=== PATIENT | female | born 1990 | race African-American/Black ===

== ENCOUNTER 2018-05-20 23:29 | Inpatient (IN) ==
[2018-05-20] MEDS ORDERED: LACTATED RINGERS 1,000 ML IV SCH (23:45)
[2018-05-20] MEDS ORDERED: BUTORPHANOL 2 MG/ML VIAL IV PRN (23:49)
[2018-05-20] MEDS ORDERED: ONDANSETRON 4 MG/2 ML VIAL IV PRN (23:49)
[2018-05-21 00:16] LABS: Basophils % 0.3 % (0.0-0.8); Eosinophils # 0.1 10*3/uL (0.0-0.87); Eosinophils % 1.1 % (0.00-10.9); Hematocrit 22.4 VOL% (35.7-47.0); Immature Granulocytes % 0.8 %; Immature Granulocytes Absolute 0.06 #; Lymphocytes # 1.5 10*3/uL (1.4-4.0); Lymphocytes % 20.3 % (21.3-54.2); Mean Corpuscular HGB Conc 27.7 GM/DL (32-36); Mean Corpuscular Hemoglobin 18 PG (27-34); Monocytes # 0.6 10*3/uL (0.11-0.8); Monocytes % 8.3 % (1.7-12.7); NRBC # 0.09 10*3/uL; Neutrophils # 5.2 10*3/uL (1.4-7.4); Neutrophils % 69.2 % (38.7-73.9); Platelet Count 337 T/CUMM (130-400); Red Cell Distribution Width 21.6 % (9.3-17.3); White Blood Count 7.5 T/CUMM (4-12)
[2018-05-21 00:22] LABS: Hemoglobin 6.2 GM/DL (12.0-16.0)
[2018-05-21 00:34] LABS: Bilirubin,Total 0.6 MG/DL (0.2-1.0); Calcium 8.3 MG/DL (8.5-10.1); Osmolality,Calculated 271.7 MOS/KG (273-304); Potassium 3.5 MMOL/L (3.5-5.1); Total Protein 7.5 G/DL (6.4-8.3)
[2018-05-21] MEDS ORDERED: ACETAMINOPHEN 325 MG TABLET PO PRN (01:08)
[2018-05-21] MEDS: MEPERIDINE 50 MG/1 ML VIAL IV PRN ×2 (05:09→07:08)
[2018-05-21] MEDS ORDERED: OXYTOCIN/LR 20 UNIT/1,000 ML BAG IV ONE ×3 (07:11→10:02)
[2018-05-21] MEDS: IBUPROFEN 800 MG TABLET PO PRN ×2 (10:23→19:50)
[2018-05-21] MEDS: FERROUS SULFATE 325 MG TABLET PO SCH (21:39)
[2018-05-22] MEDS ORDERED: oxyCODONE/ACETAMINOPHEN 5-325 MG TABLET PO PRN (00:56)
[2018-05-22] MEDS: oxyCODONE/ACETAMINOPHEN 5-325 MG TABLET PO PRN ×3 (01:10→22:04)
[2018-05-22 06:37] LABS: Basophils % 0.2 % (0.0-0.8); Eosinophils # 0.1 10*3/uL (0.0-0.87); Eosinophils % 1.9 % (0.00-10.9); Immature Granulocytes % 1.6 %; Lymphocytes # 1.7 10*3/uL (1.4-4.0); Lymphocytes % 26.5 % (21.3-54.2); Mean Corpuscular HGB Conc 26.4 GM/DL (32-36); Mean Corpuscular Hemoglobin 17 PG (27-34); Mean Corpuscular Volume 65.4 FL (87-102); Mean Platelet Volume 9.7 FL (9.6-12.0); Monocytes # 0.5 10*3/uL (0.11-0.8); NRBC # 0.09 10*3/uL; Neutrophils # 3.8 10*3/uL (1.4-7.4); Neutrophils % 61.8 % (38.7-73.9); Red Cell Distribution Width 21.2 % (9.3-17.3); White Blood Count 6.2 T/CUMM (4-12)
[2018-05-22 06:47] LABS: Hematocrit 17.4 VOL% (35.7-47.0); Hemoglobin 4.6 GM/DL (12.0-16.0); Platelet Count 223 T/CUMM (130-400); Red Blood Count 2.66 MC/CUMM (3.8-5.5)
[2018-05-22] MEDS ORDERED: SODIUM CHLORIDE 0.9% 1,000 ML IV PRN (06:54)
[2018-05-22 06:55] LABS: Hypochromasia 1+; Microcytosis 1+; Platelet Estimate Normal; Polychromasia Few
[2018-05-22] MEDS: IBUPROFEN 800 MG TABLET PO PRN ×2 (07:50→20:41)
[2018-05-22] MEDS ORDERED: MAGNESIUM HYDROXIDE SUSP 30 ML UDCUP PO PRN (08:03)
[2018-05-22] MEDS ORDERED: SIMETHICONE CHEW 80 MG TABLET PO PRN (08:03)
[2018-05-22] MEDS: FERROUS SULFATE 325 MG TABLET PO SCH ×3 (09:00→20:44)
[2018-05-22] MEDS: DOCUSATE SODIUM 100 MG CAPSULE PO SCH ×2 (09:03→20:44)
[2018-05-22 18:24] LABS: Hemoglobin 6.9 GM/DL (12.0-16.0)
[2018-05-23 07:41] VITALS: BP 113/54
[2018-05-23] MEDS: FERROUS SULFATE 325 MG TABLET PO SCH (08:46)
[2018-05-23] MEDS: DOCUSATE SODIUM 100 MG CAPSULE PO SCH (08:46)
== END 2018-05-23 14:20 | disposition home or self-care (01) | DRG 560 ==
LOC: N.LDOUT 23:29 → N.LD 23:33 → N.OB 05-21 10:29
PROVIDERS: ADMIT Specialist; ATTEND Specialist

== ENCOUNTER 2019-10-04 16:25 | Observation (INO) ==
[2019-10-04 19:18] LABS: Eosinophils # 0.1 10*3/uL (0.0-0.87); Eosinophils % 0.9 % (0.00-10.9); Hematocrit 22.3 VOL% (35.7-47.0); Immature Granulocytes % 1.1 %; Immature Granulocytes Absolute 0.07 #; Lymphocytes # 0.6 10*3/uL (1.4-4.0); Lymphocytes % 9.8 % (21.3-54.2); Mean Corpuscular HGB Conc 28.3 GM/DL (32-36); Mean Corpuscular Volume 66.4 FL (87-102); Mean Platelet Volume 10.3 FL (9.6-12.0); Monocytes % 6.9 % (1.7-12.7); NRBC # 0.04 10*3/uL; Neutrophils % 81.3 % (38.7-73.9); Platelet Count 288 T/CUMM (130-400); Red Blood Count 3.36 MC/CUMM (3.8-5.5); Red Cell Distribution Width 18.7 % (9.3-17.3); White Blood Count 6.6 T/CUMM (4-12)
[2019-10-04 19:25] LABS: Hemoglobin 6.3 GM/DL (12.0-16.0)
[2019-10-04 19:36] LABS: Albumin 2.7 G/DL (3.4-5.0); Bilirubin,Total 0.6 MG/DL (0.2-1.0); Calcium 8.3 MG/DL (8.5-10.1); Osmolality,Calculated 265.1 MOS/KG (273-304); Total Protein 7.1 G/DL (6.4-8.3)
[2019-10-04 19:41] LABS: Barbiturates Screen,Urine Negative (Negative); Benzodiazepines Screen,Urine Negative (Negative); Cannabinoid Screen,Urine Negative (Negative); Opiate Screen,Urine Negative (Negative); Phencyclidine Screen,Urine Negative (Negative)
[2019-10-04 19:44] LABS: Apearance,Urine Slightly Hazy (Clear); Bacteria,Urine Occasional /HPF (Few); Bilirubin,Urine Negative (Negative); Blood, Urine Negative (Negative); Glucose,Urine (UA) Negative (Negative); Hyaline Casts,Urine 9 /LPF (0-3); Ketones,Urine 20 mg/dL (Negative); Mucus,Urine Few /LPF (Occasional); Nitrite,Urine Negative (Negative); Protein,Urine 30 MG/DL; RBC,Urine 1 /HPF (0-4); Squamous Epithelial Cell,Urine Occasional /HPF (0-10); Urine Color Yellow (Yellow); WBC,Urine 4 /HPF (0-6)
[2019-10-04] MEDS ORDERED: LACTATED RINGERS 1,000 ML IV SCH ×2 (20:00→23:00)
[2019-10-04 20:08] LABS: PT Patient Result 10.3 SECS (9.8-11.9); Partial Thromboplastin Time 35.9 SECS (23.9-33.8)
[2019-10-04 20:31] LABS: Ferritin 4.5 ng/ml (8-252)
[2019-10-04] MEDS ORDERED: SODIUM CHLORIDE 0.9% 1,000 ML IV PRN ×2 (22:18→22:19)
[2019-10-04] MEDS ORDERED: ONDANSETRON 4 MG/2 ML VIAL IV PRN (22:56)
[2019-10-04] MEDS ORDERED: BISACODYL 10 MG SUPP RECTAL PRN (22:56)
[2019-10-04] MEDS ORDERED: MAGNESIUM HYDROXIDE SUSP 30 ML UDCUP PO PRN (22:56)
[2019-10-04] MEDS ORDERED: ACETAMINOPHEN 325 MG TABLET PO PRN (22:56)
[2019-10-04] MEDS ORDERED: FUROSEMIDE 100 MG/10 ML VIAL ONE (23:20)
[2019-10-05] MEDS ORDERED: FUROSEMIDE 20 MG/2 ML VIAL IV PRN (00:50)
[2019-10-05] MEDS ORDERED: SODIUM CHLORIDE 0.9% 1,000 ML IV PRN ×2 (01:42→07:26)
[2019-10-05 06:16] LABS: Basophils % 0.2 % (0.0-0.8); Eosinophils # 0.1 10*3/uL (0.0-0.87); Eosinophils % 0.8 % (0.00-10.9); Hematocrit 22.6 VOL% (35.7-47.0); Hemoglobin 6.8 GM/DL (12.0-16.0); Immature Granulocytes % 1.4 %; Immature Granulocytes Absolute 0.08 #; Lymphocytes # 0.8 10*3/uL (1.4-4.0); Lymphocytes % 13.8 % (21.3-54.2); Mean Corpuscular HGB Conc 30.1 GM/DL (32-36); Mean Corpuscular Volume 68.7 FL (87-102); Mean Platelet Volume 10.2 FL (9.6-12.0); NRBC # 0.05 10*3/uL; Neutrophils % 74.8 % (38.7-73.9); Platelet Count 228 T/CUMM (130-400); Red Blood Count 3.29 MC/CUMM (3.8-5.5); White Blood Count 5.9 T/CUMM (4-12)
[2019-10-05 06:41] LABS: Albumin 2.3 G/DL (3.4-5.0); Bilirubin,Total 1.9 MG/DL (0.2-1.0); Calcium 7.8 MG/DL (8.5-10.1); Total Protein 6.1 G/DL (6.4-8.3)
[2019-10-05] MEDS ORDERED: diphenhydrAMINE CAP 25 MG CAPSULE PO ONE (07:25)
[2019-10-05] MEDS ORDERED: ACETAMINOPHEN 325 MG TABLET PO ONE (07:25)
[2019-10-05] MEDS ORDERED: DOCUSATE SODIUM 100 MG CAPSULE PO SCH (09:00)
[2019-10-05 17:25] VITALS: BP 109/74
[2019-10-05 18:13] LABS: Hematocrit 30.4 VOL% (35.7-47.0)
[2019-10-05 18:28] LABS: Hemoglobin 9.6 GM/DL (12.0-16.0)
== END 2019-10-05 18:51 | disposition home or self-care (01) | DRG 566 ==
LOC: N.ED 16:25 → N.EDINP 22:56 → INTOOBSV 22:56 → N.LD 10-05 00:38
PROVIDERS: ADMIT Specialist; ATTEND Specialist

== ENCOUNTER 2019-12-10 06:48 | Inpatient (IN) ==
[2019-12-10] MEDS ORDERED: ONDANSETRON 4 MG/2 ML VIAL IV PRN ×2 (07:33→08:41)
[2019-12-10] MEDS ORDERED: MEPERIDINE 50 MG/1 ML VIAL IM PRN (07:33)
[2019-12-10] MEDS ORDERED: BUTORPHANOL 2 MG/ML VIAL IV PRN (07:33)
[2019-12-10] MEDS ORDERED: diphenhydrAMINE 50 MG/1 ML VIAL IV PRN ×2 (07:38)
[2019-12-10] MEDS ORDERED: NALOXONE 0.4 MG/ML VIAL IV PRN (07:38)
[2019-12-10] MEDS ORDERED: FAMOTIDINE 20 MG/2 ML VIAL IV ONE (07:38)
[2019-12-10] MEDS ORDERED: hydrOXYzine HCL 25 MG/1 ML VIAL IM PRN (07:38)
[2019-12-10] MEDS ORDERED: CITRIC ACID/SODIUM CITRATE 30 ML UDCUP PO ONE (07:38)
[2019-12-10] MEDS ORDERED: ePHEDrine 50 MG/ML VIAL IV PRN (07:38)
[2019-12-10] MEDS ORDERED: PROMETHAZINE 25 MG/1 ML VIAL IM PRN (07:38)
[2019-12-10] MEDS ORDERED: OXYTOCIN/LR 20 UNIT/1,000 ML BAG IV SCH (08:00)
[2019-12-10] MEDS ORDERED: fentaNYL 2 MCG/ROPIV 0.2% EPID 100 ML EPIDURAL SCH (08:00)
[2019-12-10] MEDS ORDERED: LACTATED RINGERS 1,000 ML IV SCH (08:00)
[2019-12-10 08:03] LABS: Basophils % 0.2 % (0.0-0.8); Eosinophils # 0.1 10*3/uL (0.0-0.87); Eosinophils % 1.4 % (0.00-10.9); Hematocrit 31.5 VOL% (35.7-47.0); Hemoglobin 10.3 GM/DL (12.0-16.0); Immature Granulocytes % 0.5 %; Immature Granulocytes Absolute 0.05 #; Lymphocytes # 1.5 10*3/uL (1.4-4.0); Lymphocytes % 16.3 % (21.3-54.2); Mean Corpuscular HGB Conc 32.7 GM/DL (32-36); Mean Corpuscular Volume 78.8 FL (87-102); Neutrophils % 73.6 % (38.7-73.9); Platelet Count 282 T/CUMM (130-400); Red Cell Distribution Width 21.1 % (9.3-17.3); White Blood Count 9.1 T/CUMM (4-12)
[2019-12-10 08:21] LABS: Albumin 2.6 G/DL (3.4-5.0); Bilirubin,Total 0.6 MG/DL (0.2-1.0); Calcium 8.8 MG/DL (8.5-10.1); Osmolality,Calculated 272.7 MOS/KG (273-304)
[2019-12-10] MEDS ORDERED: miSOPROStoL 200 MCG TABLET ONE (08:25)
[2019-12-10] MEDS ORDERED: LIDOCAINE 1% 50 ML VIAL ONE (08:25)
[2019-12-10] MEDS ORDERED: METHYLERGONOVINE 0.2 MG/1 ML AMP ONE (08:26)
[2019-12-10] MEDS ORDERED: DIPH/TET/ACEL PERT BOOSTER VACCINE 0.5 ML VIAL IM ONE (08:41)
[2019-12-10] MEDS ORDERED: MEASLES/MUMPS/RUBELLA VACCINE 0.5 ML VIAL SUBCUT ONE (08:41)
[2019-12-10] MEDS ORDERED: WITCH HAZEL PADS 100/JAR TOP PRN (08:41)
[2019-12-10] MEDS ORDERED: OXYTOCIN/LR 20 UNIT/1,000 ML BAG IV ONE (08:41)
[2019-12-10] MEDS ORDERED: ACETAMINOPHEN 325 MG TABLET PO PRN (08:41)
[2019-12-10] MEDS ORDERED: HYDROCORTISONE 2.5% RECTAL CREAM 30 GM TUBE TOP PRN (08:41)
[2019-12-10] MEDS ORDERED: RHO(D) IMMUNE GLOBULIN 300 MCG SYRINGE IM ONE (08:41)
[2019-12-10] MEDS ORDERED: BISACODYL 10 MG SUPP RECTAL PRN (08:41)
[2019-12-10] MEDS ORDERED: BENZOCAINE 20%/MENTHOL 0.5% SPRAY 56 GM CAN TOP PRN (08:41)
[2019-12-10] MEDS ORDERED: LANOLIN 50% CREAM 0.3 OZ TUBE TOP PRN (08:41)
[2019-12-10 09:01] LABS: Cord Venous Blood HCO3 22.9 MMOL/L; Cord Venous Blood PCO2 43.2 MMHG; Cord Venous Blood PO2 28.4 MMHG
[2019-12-10] MEDS: IBUPROFEN 800 MG TABLET PO PRN ×3 (11:32→23:26)
[2019-12-10] MEDS: oxyCODONE/ACETAMINOPHEN 5-325 MG TABLET PO PRN ×3 (11:34→23:25)
[2019-12-10] MEDS ORDERED: BENZOCAINE 20% ORAL GEL 11.9 GM TUBE TOP PRN (13:40)
[2019-12-10] MEDS: DOCUSATE SODIUM 100 MG CAPSULE PO SCH (21:13)
[2019-12-11 06:38] LABS: Basophils % 0.1 % (0.0-0.8); Eosinophils # 0.2 10*3/uL (0.0-0.87); Eosinophils % 2.1 % (0.00-10.9); Hematocrit 28.6 VOL% (35.7-47.0); Immature Granulocytes % 1.1 %; Immature Granulocytes Absolute 0.09 #; Lymphocytes # 1.6 10*3/uL (1.4-4.0); Lymphocytes % 20.7 % (21.3-54.2); Mean Corpuscular HGB Conc 31.5 GM/DL (32-36); Mean Corpuscular Volume 81.9 FL (87-102); Mean Platelet Volume 8.9 FL (9.6-12.0); Monocytes % 8.6 % (1.7-12.7); Neutrophils % 67.4 % (38.7-73.9); Platelet Count 233 T/CUMM (130-400); Red Blood Count 3.49 MC/CUMM (3.8-5.5); Red Cell Distribution Width 21.2 % (9.3-17.3); White Blood Count 7.9 T/CUMM (4-12)
[2019-12-11] MEDS: DOCUSATE SODIUM 100 MG CAPSULE PO SCH ×2 (08:41→21:58)
[2019-12-11] MEDS: IBUPROFEN 800 MG TABLET PO PRN ×2 (11:27→17:43)
[2019-12-11] MEDS: oxyCODONE/ACETAMINOPHEN 5-325 MG TABLET PO PRN ×2 (11:29→17:42)
[2019-12-11] MEDS ORDERED: diphenhydrAMINE CAP 25 MG CAPSULE PO PRN (13:34)
[2019-12-12 08:29] VITALS: BP 131/73
== END 2019-12-12 11:40 | disposition home or self-care (01) | DRG 560 ==
LOC: N.LDOUT 06:48 → N.LD 06:49 → N.OB 11:02
PROVIDERS: ADMIT Specialist; ATTEND Specialist

== ENCOUNTER 2022-03-07 05:00 | Inpatient (IN) ==
[2022-03-07] MEDS ORDERED: TRANEXAMIC ACID 1,000 MG in SODIUM CHLORIDE 0.9% 100 ML IV PRN (05:07)
[2022-03-07] MEDS ORDERED: ACETAMINOPHEN 325 MG TABLET PO PRN ×2 (05:07→12:08)
[2022-03-07] MEDS ORDERED: CARBOPROST TROMETHAMINE 250 MCG/ML AMP IM PRN (05:07)
[2022-03-07] MEDS ORDERED: BUTORPHANOL 2 MG/ML VIAL IV PRN (05:07)
[2022-03-07] MEDS ORDERED: miSOPROStoL 200 MCG TABLET RECTAL PRN (05:07)
[2022-03-07] MEDS ORDERED: MEPERIDINE 50 MG/1 ML VIAL IV PRN (05:07)
[2022-03-07] MEDS ORDERED: ONDANSETRON 4 MG/2 ML VIAL IV PRN ×2 (05:07→12:08)
[2022-03-07] MEDS ORDERED: METHYLERGONOVINE 0.2 MG/1 ML AMP IM PRN (05:07)
[2022-03-07] MEDS ORDERED: OXYTOCIN/LR 20 UNIT/1,000 ML BAG IV ONE ×2 (05:07→12:08)
[2022-03-07] MEDS: OXYTOCIN/LR 20 UNIT/1,000 ML BAG IV SCH ×2 (05:34→10:00)
[2022-03-07] MEDS: LACTATED RINGERS 1,000 ML IV SCH ×2 (05:56→07:59)
[2022-03-07 06:11] LABS: Bacteria,Urine Occasional /HPF (Few); Mucus,Urine Few /LPF (Occasional); RBC,Urine 19 /HPF (0-4); Squamous Epithelial Cell,Urine Occasional /HPF (0-10)
[2022-03-07 06:13] LABS: Glucose,Urine (UA) Negative (Negative); Ketones,Urine >=160 mg/dL (Negative); Nitrite,Urine Negative (Negative); Protein,Urine Negative (Negative); Urine Appearance Clear (Clear); Urine Color Yellow (Yellow); Urine Specific Gravity >= 1.030 (1.001-1.035); Urine pH 6.5 (4.5-8.0)
[2022-03-07 06:14] LABS: Bilirubin,Urine Negative (Negative); Blood, Urine Negative (Negative)
[2022-03-07 06:22] LABS: Basophils % 0.2 % (0.0-0.8); Eosinophils # 0.1 10*3/uL (0.0-0.87); Eosinophils % 2.3 % (0.00-10.9); Hematocrit 25.9 VOL% (35.7-47.0); Hemoglobin 7.8 GM/DL (12.0-16.0); Immature Granulocytes % 0.8 %; Immature Granulocytes Absolute 0.05 #; Lymphocytes # 1.3 10*3/uL (1.4-4.0); Lymphocytes % 20.9 % (21.3-54.2); Mean Corpuscular HGB Conc 30.1 GM/DL (32-36); Mean Corpuscular Volume 67.3 FL (87-102); Mean Platelet Volume 9.6 FL (9.6-12.0); Monocytes # 0.4 10*3/uL (0.11-0.8); Monocytes % 6.6 % (1.7-12.7); NRBC # 0.04 10*3/uL; Neutrophils % 69.2 % (38.7-73.9); Platelet Count 359 T/CUMM (130-400); Red Blood Count 3.85 MC/CUMM (3.8-5.5); Red Cell Distribution Width 19.4 % (9.3-17.3); White Blood Count 6.2 T/CUMM (4-12)
[2022-03-07] MEDS ORDERED: CITRIC ACID/SODIUM CITRATE 30 ML UDCUP PO ONE (07:08)
[2022-03-07] MEDS ORDERED: diphenhydrAMINE 50 MG/1 ML VIAL IV PRN ×2 (07:08)
[2022-03-07] MEDS ORDERED: LACTATED RINGERS 250 ML IV PRN (07:08)
[2022-03-07] MEDS ORDERED: hydrOXYzine HCL 25 MG/1 ML VIAL IM PRN (07:08)
[2022-03-07] MEDS ORDERED: PROMETHAZINE 25 MG/1 ML VIAL IM ONE (07:08)
[2022-03-07] MEDS ORDERED: NALOXONE 0.4 MG/ML VIAL IV PRN (07:08)
[2022-03-07] MEDS ORDERED: ePHEDrine 50 MG/ML VIAL IV PRN (07:08)
[2022-03-07] MEDS ORDERED: FAMOTIDINE 20 MG/2 ML VIAL IV ONE (07:08)
[2022-03-07] MEDS ORDERED: ONDANSETRON 4 MG/2 ML VIAL IV ONE (07:08)
[2022-03-07] MEDS ORDERED: fentaNYL 2 MCG/ROPIV 0.2% EPID 100 ML EPIDURAL SCH (07:30)
[2022-03-07 09:25] LABS: Cord Arterial Blood HCO3 20.5 MMOL/L
[2022-03-07 09:28] LABS: Cord Venous Blood HCO3 20.4 MMOL/L; Cord Venous Blood PCO2 41.2 MMHG; Cord Venous Blood PO2 31.6
[2022-03-07] MEDS ORDERED: WITCH HAZEL PADS 100/JAR TOP PRN (12:08)
[2022-03-07] MEDS ORDERED: HYDROCORTISONE 2.5% RECTAL CREAM 30 GM TUBE TOP PRN (12:08)
[2022-03-07] MEDS ORDERED: LANOLIN 50% CREAM 0.3 OZ TUBE TOP PRN (12:08)
[2022-03-07] MEDS ORDERED: MEASLES/MUMPS/RUBELLA VACCINE 0.5 ML VIAL SUBCUT ONE (12:08)
[2022-03-07] MEDS ORDERED: DIPH/TET/ACEL PERT BOOSTER VACCINE 0.5 ML VIAL IM ONE (12:08)
[2022-03-07] MEDS ORDERED: BENZOCAINE 20%/MENTHOL 0.5% SPRAY 56 GM CAN TOP PRN (12:08)
[2022-03-07] MEDS ORDERED: BISACODYL 10 MG SUPP RECTAL PRN (12:08)
[2022-03-07] MEDS ORDERED: RHO(D) IMMUNE GLOBULIN 300 MCG SYRINGE IM ONE (12:08)
[2022-03-07] MEDS: oxyCODONE/ACETAMINOPHEN 5-325 MG TABLET PO PRN ×2 (14:05→20:10)
[2022-03-07] MEDS: IRON (CARBONYL)/VIT C/B12/FA TABLET PO SCH (15:17)
[2022-03-07] MEDS: IBUPROFEN 800 MG TABLET PO PRN (20:10)
[2022-03-07] MEDS: DOCUSATE SODIUM 100 MG CAPSULE PO SCH (21:00)
[2022-03-07] MEDS ORDERED: MAGNESIUM HYDROXIDE SUSP 30 ML UDCUP PO PRN (23:51)
[2022-03-08] MEDS ORDERED: ONDANSETRON 4 MG TABLET PO SCH (00:30)
[2022-03-08] MEDS: oxyCODONE/ACETAMINOPHEN 5-325 MG TABLET PO PRN (02:25)
[2022-03-08] MEDS: IBUPROFEN 800 MG TABLET PO PRN (02:26)
[2022-03-08 05:49] LABS: Basophils % 0.3 % (0.0-0.8); Eosinophils # 0.2 10*3/uL (0.0-0.87); Eosinophils % 2.9 % (0.00-10.9); Hematocrit 22.2 VOL% (35.7-47.0); Immature Granulocytes Absolute 0.23 #; Lymphocytes # 1.8 10*3/uL (1.4-4.0); Lymphocytes % 24.3 % (21.3-54.2); Mean Corpuscular HGB Conc 27.9 GM/DL (32-36); Mean Corpuscular Volume 70.9 FL (87-102); Mean Platelet Volume 9.3 FL (9.6-12.0); Monocytes # 0.7 10*3/uL (0.11-0.8); Monocytes % 9.1 % (1.7-12.7); NRBC # 0.06 10*3/uL; Neutrophils % 60.4 % (38.7-73.9); Platelet Count 299 T/CUMM (130-400); Red Blood Count 3.13 MC/CUMM (3.8-5.5); Red Cell Distribution Width 19.8 % (9.3-17.3); White Blood Count 7.6 T/CUMM (4-12)
[2022-03-08 05:51] LABS: Hemoglobin 6.2 GM/DL (12.0-16.0)
[2022-03-08] MEDS: KETOROLAC 10 MG TABLET PO PRN ×2 (08:14→17:53)
[2022-03-08] MEDS: IRON (CARBONYL)/VIT C/B12/FA TABLET PO SCH (08:14)
[2022-03-08] MEDS: DOCUSATE SODIUM 100 MG CAPSULE PO SCH ×2 (08:14→21:34)
[2022-03-09] MEDS: IBUPROFEN 800 MG TABLET PO PRN (02:15)
[2022-03-09] MEDS: oxyCODONE/ACETAMINOPHEN 5-325 MG TABLET PO PRN (07:12)
[2022-03-09 07:36] VITALS: BP 117/66
[2022-03-09] MEDS: DOCUSATE SODIUM 100 MG CAPSULE PO SCH (09:15)
[2022-03-09] MEDS: IRON (CARBONYL)/VIT C/B12/FA TABLET PO SCH (09:15)
== END 2022-03-09 13:00 | disposition home or self-care (01) | DRG 560 ==
LOC: N.LDOUT 05:00 → N.LD 05:01 → N.OB 11:48
PROVIDERS: ADMIT Specialist; ATTEND Specialist